=== PATIENT | female | born 1950 | race Two or more races ===

== ENCOUNTER 2017-08-07 08:11 | Emergency (ER) | payer SELFPAY ==
[~2017-08-07] VITALS: Ht 165.1 cm; Wt 50.2 kg
[2017-08-07 08:13] VITALS: BP 146/89
== END 2017-08-07 08:29 | disposition left against medical advice (07) ==
LOC: ED 08:22
DX: Z53.21 Procedure and treatment not carried out due to patient leaving prior to being seen by health care provider (principal)